=== PATIENT | female | born 1945 | race Caucasian/White ===

== ENCOUNTER 2018-08-01 05:13 | Inpatient (IN) ==
[2018-08-01] MEDS ORDERED: Metoprolol Tartrate 25 MG Tablet PO ONE (05:35)
[2018-08-01] MEDS ORDERED: Chlorhexidine Gluconate 2% 1 Pack (2 Cloths) TOPICAL ONE (05:35)
[2018-08-01] MEDS ORDERED: Vancomycin Inj 1,250 MG in Sodium Chlor 0.9% Inj 250 ML IV.SIG SCH (06:00)
[2018-08-01] MEDS ORDERED: Sodium Chlor 0.9% Inj 500 ML IV.SIG SCH (06:00)
[2018-08-01] MEDS ORDERED: Bupivacaine/Epinephrine Inj 0.25% 50 ML Vial ONE (06:58)
[2018-08-01] MEDS ORDERED: Scopalamine 1.5 MG Patch T-DERMAL ONE (07:04)
[2018-08-01] MEDS ORDERED: Neostigmine Inj 5 MG/5 ML Syringe IV.PUSH ONE (07:30)
[2018-08-01] MEDS ORDERED: Glycopyrrolate Inj 1 MG/5 ML Syringe IV.PUSH ONE (07:30)
[2018-08-01] MEDS ORDERED: Lidocaine PF 1% Inj 5 ML Syringe OTHER ONE (07:30)
[2018-08-01] MEDS ORDERED: diphenhydrAMINE HCl 12.5 MG/5 ML Elixir UDC PO PRN (09:15)
[2018-08-01] MEDS ORDERED: Post-op Orders (for Pharmacy) OTHER STA (09:15)
[2018-08-01] MEDS ORDERED: Morphine Inj 30 MG/30 ML PCA.VIAL PCA PRN (09:18)
[2018-08-01] MEDS ORDERED: Naloxone Inj 0.4 MG/ML Vial IV.PUSH PRN (09:18)
[2018-08-01] MEDS ORDERED: fentaNYL Citrate Inj 100 MCG/2 ML Ampul ONE (09:31)
[2018-08-01] MEDS ORDERED: KCL 20 mEq/D5W/NaCl 0.45% Inj 1,000 ML ONE (09:32)
[2018-08-01] MEDS ORDERED: Morphine Inj 30 MG/30 ML PCA.VIAL PCA ONE (09:32)
[2018-08-01] MEDS ORDERED: *morphine SULFATE 4 MG/ML PERIprocedure ONLY ONE (09:33)
[2018-08-01] MEDS ORDERED: *morphine SULFATE 10 MG/ML PERIprocedure ONLY ONE (09:47)
[2018-08-01] MEDS: KCL 20 mEq/D5W/NaCl 0.45% Inj 1,000 ML IV.CONT SCH ×2 (09:55→18:20)
[2018-08-01] MEDS ORDERED: HYDROmorphone PF Inj 2 MG/ML Vial ONE (10:38)
[2018-08-01] MEDS: Enoxaparin Inj 40 MG/0.4 ML Syringe SQ SCH (13:01)
--- NOTE | 2018-08-01 16:21 | P.PNGS ---
Physical Exam Vital signs: Vital Signs 08/01/18 06:11 08/01/18 09:22 08/01/18 09:30 Temperature 98.0 F 97.8 F Pulse Rate 78 81 72 Respiratory Rate 16 13 13 Blood Pressure 171/73 H 146/78 H 138/64 Pulse Oximetry 96 94 L 97 08/01/18 09:45 08/01/18 10:00 08/01/18 10:15 Temperature Pulse Rate 66 65 67 Respiratory Rate 16 16 10 L Blood Pressure 119/57 L 110/53 L 103/50 L Pulse Oximetry 98 97 97 08/01/18 10:30 08/01/18 10:45 08/01/18 11:00 Temperature Pulse Rate 64 68 68 Respiratory Rate 13 11 L 12 Blood Pressure 112/55 L 108/56 L 118/55 L Pulse Oximetry 95 96 94 L 08/01/18 11:10 08/01/18 11:15 08/01/18 12:00 Temperature Pulse Rate 70 69 Respiratory Rate 20 12 12 Blood Pressure 105/53 L 118/57 L Pulse Oximetry 97 96 08/01/18 13:00 08/01/18 13:30 08/01/18 13:45 Temperature 97.8 F Pulse Rate 65 66 Respiratory Rate 9 L 12 12 Blood Pressure 118/60 118/60 Pulse Oximetry 97 97 Intake & Output 07/31/18 08/01/18 08/01/18 18:59 06:59 18:59 Intake Total 1575 / 1575 Output Total Balance 1565 / 1565 Weight 112.7 kg Intake: IV 1375 / 1375 Ofirmev Inj 1,000 mg In 100 ml 100 / 100 @ 400 mls/hr IV.SIG [employer] [facility] Rx#:[id number] LR 1000 mL Inj 1,000 ML @ 30 1000 / 1000 mls/hr IV.SIG .Q24H [facility] Rx#: [id number] Vancomycin Inj 1,250 MG In NS 275 / 275 Inj 250 ML @ 275 mls/hr IV.SIG [employer] [facility] Rx#:[id number] Anesthesia Amount 200 / 200 Output: Estimated Blood Loss Other: Weight On Admission 112.7 kg - Constitutional no acute distress, somnolent - Routine HEENT Exam Head: Present: normocephalic Eye: Present: EOMI, PERRL, normal accommodation ENT: Present: mucous membranes moist - Routine Neck Exam Present: supple - Routine Respiratory Exam Present: CTA bilaterally - Routine Cardiovascular Exam Present: RRR, S1, S2 - Routine Abdominal Exam Present: soft, tenderness, distended Comments: Surgical site with scant dried bloody drainage, no eccymosis or edema. - Routine Extremities Exam Present: full ROM - Routine Neurological Exam Present: oriented X3 - Detailed Neurological Exam: Coma Scale Eye Opening: To sound Verbal Response: Oriented Motor Response: Obey commands [place] Coma Scale Total: 14 - Routine Psychiatric Exam Present: normal affect Results - Labs 08/02/18 05:30 08/02/18 05:30 Assessment and Plan - Plan VSG with hiatal hernia repair. Tolerating clears, continue this PM. Nausea and pain well controlled. Ambulate as tolerated. Code Status: Full code Discussed Condition With: Patient
[2018-08-01] MEDS: Vancomycin Inj 1,000 MG in Sodium Chlor 0.9% Inj 250 ML IV.SIG SCH (18:16)
[2018-08-02] MEDS: KCL 20 mEq/D5W/NaCl 0.45% Inj 1,000 ML IV.CONT SCH ×2 (05:32→08:43)
[2018-08-02 05:43] LABS: Baso % (Auto) 0.2 % (0.0-2.0); Hemoglobin 14.7 gm/dL (11.6-15.3); Lymph # (Auto) 0.9 th/mm3 (1.0-4.8); Lymph % (Auto) 7.8 % (9.0-44.0); Mean Corpuscular HGB Conc 33.5 % (32.0-36.0); Mean Corpuscular Hemoglobin 30.3 pg (27.0-34.0); Mean Corpuscular Volume 90.6 fL (80.0-100.0); Mean Platelet Volume 10.5 fL (7.0-11.0); Mono # (Auto) 1.2 th/mm3 (0.0-0.9); Mono % (Auto) 10.5 % (0.0-8.0); Neut # (Auto) 9.3 th/mm3 (1.8-7.7); Neut % (Auto) 81.5 % (16.0-70.0); Platelet Count 187 th/mm3 (150-450); Red Blood Count 4.86 mil/mm3 (4.00-5.30); Red Cell Distribution Width 13.5 % (11.6-17.2); White Blood Count 11.4 th/mm3 (4.0-11.0)
[2018-08-02] MEDS: Vancomycin Inj 1,000 MG in Sodium Chlor 0.9% Inj 250 ML IV.SIG SCH (06:08)
[2018-08-02 06:17] LABS: Anion Gap 7 meq/L (5-15); Blood Urea Nitrogen 8 mg/dL (7-18); Calcium 8.9 mg/dL (8.5-10.1); Carbon Dioxide 26.1 meq/L (21.0-32.0); Chloride 106 meq/L (98-107); Glomerular Filtration Rate Greater Than 89 mL/min (>89); Glucose,Random 170 mg/dL (74-106); Magnesium 2.3 mg/dL (1.5-2.5); Potassium 4.4 meq/L (3.5-5.1); Sodium 139 meq/L (136-145)
--- NOTE | 2018-08-02 10:15 | P.PNGS ---
Subjective Patient reports: tolerating liquids well, voiding w/o difficulty, flatus (More alert no complaints overnight.) Interval history: Denies shortness of breath, chest pain, moderat/severe abdominal pain. Physical Exam Vital signs: Vital Signs 08/01/18 10:15 08/01/18 10:30 08/01/18 10:45 Temperature Pulse Rate 67 64 68 Respiratory Rate 10 L 13 11 L Blood Pressure 103/50 L 112/55 L 108/56 L Pulse Oximetry 97 95 96 08/01/18 11:00 08/01/18 11:10 08/01/18 11:15 Temperature Pulse Rate 68 70 Respiratory Rate 12 20 12 Blood Pressure 118/55 L 105/53 L Pulse Oximetry 94 L 97 08/01/18 12:00 08/01/18 13:00 08/01/18 13:30 Temperature Pulse Rate 69 65 Respiratory Rate 12 9 L 12 Blood Pressure 118/57 L 118/60 Pulse Oximetry 96 97 08/01/18 13:45 08/01/18 16:15 08/01/18 20:00 Temperature 97.8 F 97.1 F L 97.1 F L Pulse Rate 66 67 70 Respiratory Rate 12 20 18 Blood Pressure 118/60 135/68 136/63 Pulse Oximetry 97 92 L 97 08/02/18 00:15 08/02/18 04:15 08/02/18 07:49 Temperature 97.8 F 97.8 F 97.7 F Pulse Rate 67 61 57 L Respiratory Rate 17 19 18 Blood Pressure 146/73 H 123/59 L 120/59 L Pulse Oximetry 95 94 L 93 L 08/02/18 09:04 Temperature Pulse Rate Respiratory Rate Blood Pressure Pulse Oximetry 95 Intake & Output 08/01/18 08/02/18 08/02/18 18:59 06:59 18:59 Intake Total 2575 / 2575 1250 / 1250 250 / 250 Output Total 2500 / 2500 Balance 2565 / 2565 -1250 / -1250 250 / 250 Weight 112.2 kg Intake: IV 2375 / 2375 1250 / 1250 250 / 250 D5W/1/2NS + KCL 20 mEq Inj 1, 1000 / 1000 1000 / 1000 000 ML @ 125 mls/hr IV.CONT . Q8H [facility] Rx#:[id number] Ofirmev Inj 1,000 mg In 100 ml 100 / 100 @ 400 mls/hr IV.SIG [employer]ER [facility] Rx#:[id number] LR 1000 mL Inj 1,000 ML @ 30 1000 / 1000 mls/hr IV.SIG .Q24H [facility] Rx#: [id number] Vancomycin Inj 1,000 MG In NS 250 / 250 250 / 250 Inj 250 ML @ 250 mls/hr IV.SIG Q12H [facility] Rx#:[id number] Vancomycin Inj 1,250 MG In NS 275 / 275 Inj 250 ML @ 275 mls/hr IV.SIG [employer] [facility] Rx#:[id number] Anesthesia Amount 200 / 200 Output: Urine 2500 / 2500 Estimated Blood Loss Other: # Voids 2 Date of Last Bowel Movement 07/31/18 - Constitutional no acute distress - Routine HEENT Exam Head: Present: normocephalic Eye: Present: EOMI, PERRL - Routine Neck Exam Present: supple - Routine Respiratory Exam Present: CTA bilaterally - Routine Cardiovascular Exam Present: RRR, S1, S2 - Routine Abdominal Exam Present: soft, normoactive bowel sounds, tenderness Comments: laproscopic sites, with scant dried bloody drainage, no eccymosis, erythema or edema - Routine Neurological Exam Present: oriented X3 - Detailed Neurological Exam: Coma Scale Eye Opening: Spontaneous - Routine Psychiatric Exam Present: normal affect Results - Labs 08/02/18 05:30 08/02/18 05:30 Laboratory Results - last 24 hr 08/02/18 08/02/18 05:30 05:30 WBC 11.4 H RBC 4.86 Hgb 14.7 Hct 44.0 MCV 90.6 MCH 30.3 MCHC 33.5 RDW 13.5 Plt Count 187 MPV 10.5 Neut % (Auto) 81.5 H Lymph % (Auto) 7.8 L [place] % (Auto) 10.5 H Eos % (Auto) 0.0 Baso % (Auto) 0.2 Neut # (Auto) 9.3 H Lymph # (Auto) 0.9 L [place] # (Auto) 1.2 H Eos # (Auto) 0.0 Baso # (Auto) 0.0 WBC Differential . Differential Comment Auto diff final Sodium 139 Potassium 4.4 Chloride 106 Carbon Dioxide 26.1 Anion Gap 7 BUN 8 Creatinine 0.55 Estimated GFR Greater than 89 Random Glucose 170 H Calcium 8.9 Magnesium 2.3 Assessment and Plan - Plan POD #1 VSG with hiatal hernia repair. Tolerating clears, 30 ml q 30 min, advance to 60 ml. 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 Ambulate as tolerated. Continue IS and SCD Code Status: Full Code Discussed Condition With: patient
[2018-08-02] MEDS: Acetaminophen-HYDROcodone 325/7.5 Liq 15 ML UDC PO PRN ×2 (10:53→17:38)
[2018-08-02] MEDS: Enoxaparin Inj 40 MG/0.4 ML Syringe SQ SCH (12:34)
[2018-08-02 22:27] VITALS: RESP 17; TEMP 98.6; O2SAT 92
[2018-08-03 01:13] VITALS: BP 151/67; PULSE 89
--- NOTE | 2018-08-03 11:22 | P.PNGS ---
Subjective Interval history: No GI complaints Tolerating PO fluids Pain and nausea well controlled Physical Exam Vital signs: Vital Signs 08/02/18 12:06 08/02/18 17:29 08/02/18 20:00 Temperature 98.5 F 97.8 F 98.6 F Pulse Rate 87 80 88 Respiratory Rate 16 20 17 Blood Pressure 135/63 145/75 H 132/63 Pulse Oximetry 96 94 L 92 L 08/03/18 00:00 Temperature 98.6 F Pulse Rate 89 Respiratory Rate 17 Blood Pressure 151/67 H Pulse Oximetry 92 L Intake & Output 08/02/18 08/03/18 08/03/18 18:59 06:59 18:59 Intake Total 1870 / 1870 480 / 480 Output Total 800 / 800 Balance 1070 / 1070 480 / 480 Weight 112.2 kg 112.2 kg Intake: IV 1250 / 1250 D5W/1/2NS + KCL 20 mEq Inj 1, 1000 / 1000 000 ML @ 125 mls/hr IV.CONT . Q8H [facility] Rx#:[id number] Vancomycin Inj 1,000 MG In NS 250 / 250 Inj 250 ML @ 250 mls/hr IV.SIG Q12H [facility] Rx#:[id number] Oral 620 / 620 480 / 480 Output: Urine 800 / 800 Other: # Voids 2 2 # Bowel Movements 0 Narrative: GENERAL: This is a well-nourished, well-developed patient, in no apparent distress. CARDIOVASCULAR: RRR RESPIRATORY: Clear to auscultation. Breath sounds equal bilaterally. No wheezes , rales, or rhonchi. GASTROINTESTINAL: Abdomen soft, normal post-op tenderness, surgical incisions C/ D/I MUSCULOSKELETAL: Extremities without clubbing, cyanosis, or edema. Results - Labs 08/02/18 05:30 08/02/18 05:30 Assessment and Plan - Plan 72yo F POD#2 laparoscopic VSG with hiatal hernia repair -Continue to increase fluids as tolerated -Continue with frequent ambulation Code Status: Full Discussed Condition With: RN, pt at bedside Discharge Planning: D/C home today - Attending Attestation The exam, history, and the medical decision-making described in the above note were completed with the assistance of the mid-level provider. I reviewed and agree with the findings presented. I attest that I had a [id number] encounter with the patient on the same day, and personally performed and documented my assessment and findings in the medical record.
--- NOTE | 2018-08-11 13:21 | MP ---
cc: Mustapha Pedroza MD DATE OF OPERATION: 08/01/2018 PREOPERATIVE DIAGNOSIS: Morbid obesity with a body mass index of 45, complicated by essential hypertension, rule out hemochromatosis. POSTOPERATIVE DIAGNOSES: Morbid obesity with a body mass index of 45, complicated by essential hypertension, rule out hemochromatosis as well as hiatal hernia. PROCEDURE: 1. Laparoscopic vertical sleeve gastrectomy over a 36-[place] ViSiGi bougie. 2. Laparoscopic hiatal hernia repair. 3. Laparoscopic liver biopsy, Niles-Cut. SURGEON: Mustapha Pedroza MD COAL MINE INSPECTOR: Mayo Munoz MD ANESTHESIA: General endotracheal anesthesia. ESTIMATED BLOOD LOSS: Scant. FINDINGS: Fatty liver, moderate sized hiatal hernia. SPECIMENS: Liver biopsy. COMPLICATIONS: None. PROCEDURE IN DETAIL: The patient was brought to the operating room, placed on operating table in a supine position. Bilateral sequential inflation device placed on the lower extremities. General anesthesia instituted. The abdomen was prepped and draped sterilely. A point 15 cm distal to the xiphoid in the midline anesthetized with 0.25% Marcaine with epinephrine. A skin incision was made. A 5 mL OptiView port placed under direct vision and pneumoperitoneum created. Under direct vision, two 5 mm left lower quadrant, a 15 mm right upper quadrant and a 5 mm right upper quadrant ports were placed. Prior to placement of all ports, the skin and peritoneum anesthetized with 0.25% Marcaine with epinephrine. The patient was placed in reverse Trendelenburg position left side up. The Daniela-flex retractor was placed. The left lobe of the liver was retracted. The vasculature along the greater curve of the stomach was taken down using the harmonic scalpel starting at a distance 5 cm proximal to the pylorus and carried towards the angle of His. The posterior ligamentous attachments sharply . There was a hiatal hernia identified. The left and right crura of the diaphragm were dissected. The GE junction was mobilized into the abdominal cavity. The hernia sac was excised. The crura of the diaphragm was approximated with 0-silk suture in a [id number] manner. The 36-[place] ViSiGi bougie was placed at the beginning of the case. It was placed on suction. Division of the stomach started 5 cm proximal to the pylorus and this was carried towards the angle of His to completely excise approximately 80% of the stomach. This was performed using an echelon flex stapler. The first firing was with a black load, followed by a green load and two gold loads. All staple loads were reinforced with Seamguard. A distance of 2 cm was left from the angle incisura and the staple line. A distance of 1 cm left from the GE junction and the staple line. The bougie was then removed. Methylene blue was then instilled through the orogastric tube after occluding the pylorus. There was no evidence of extravasation. The gastrocolic ligament was then sutured to the posterior leaflet of the SeamGuard using a 2-0 Vicryl suture in a running manner for the entire staple line. The bleeding points were controlled with Evicel. Attention was then focused at the liver. Stab incision was made in the epigastrium. A Niles-Cut biopsy needle was then passed through the right lobe of the liver. Two separate specimens were obtained. Hemostasis was obtained using Bovie. The excised stomach was removed from the peritoneal through the 15 mm port site. The fascia at the 15 mm port site approximated using an 0-Vicryl suture. The abdominal wall was then cleaned and a sterile dressing placed. The patient was awakened and taken to the recovery room. MD NOVA Zheng/randal , 12:52 PM , 12:57 PM [email or web address]
== END 2018-08-03 11:47 | disposition home or self-care (01) ==
LOC: HSDI 05:13 → N07 13:56
PROVIDERS: ADMIT Surgery; ATTEND Surgery